=== PATIENT | male | born 1965 | race Caucasian/White ===

== ENCOUNTER 2017-03-29 07:30 | Day surgery (SDC) | payer BC ==
[2017-03-29] MEDS ORDERED: LIDOCAINE 1% 5 ML SDV ID PRN (08:03)
[2017-03-29] MEDS ORDERED: LR 1,000 ML IV ONE (08:03)
[2017-03-29] MEDS ORDERED: LIDOCAINE 1% 5 ML SDV ONE (08:06)
[2017-03-29] MEDS ORDERED: PROPOFOL 200 MG/20 ML VIAL ONE (08:12)
[2017-03-29] MEDS ORDERED: ROCURONIUM 50 MG/5 ML VIAL ONE (08:12)
[2017-03-29] MEDS ORDERED: LIDOCAINE 2% 100 MG/5 ML SYR ONE (08:12)
[2017-03-29] MEDS ORDERED: ONDANSETRON 4 MG/2 ML VIAL ONE (08:12)
[2017-03-29] MEDS ORDERED: fentaNYL 100 MCG/2 ML INJ ONE ×3 (08:12→11:47)
[2017-03-29] MEDS ORDERED: DEXAMETHASONE 4 MG/ML VIAL ONE (08:12)
[2017-03-29] MEDS ORDERED: LIDO/EPI 1% **Not for Epidural 20 ML MDV ONE (09:03)
[2017-03-29] MEDS ORDERED: MIDAZOLAM 2 MG/2 ML VIAL ONE (09:57)
[2017-03-29] MEDS ORDERED: PHENYLEPHRINE HCL 100 MCG/ML SYR ONE (10:25)
[2017-03-29] MEDS ORDERED: SUGAMMADEX SODIUM 200 MG/2 ML VIAL IVP ONE (11:08)
[2017-03-29] MEDS ORDERED: LABETALOL HCL 50 MG/10 ML SYR ONE (11:31)
[2017-03-29] MEDS ORDERED: hydrALAZINE 20 MG/ML VIAL ONE (11:42)
[2017-03-29] MEDS ORDERED: hydrALAZINE 20 MG/ML VIAL IVP PRN (11:48)
--- NOTE | 2017-04-02 03:36 | GOP ---
[f rep st] OPERATIVE REPORT DATE OF OPERATION: 03/29/2017 SURGEON: Deon Huerta MD ANESTHESIA: General. PREOPERATIVE DIAGNOSIS: Nasal obstruction. POSTOPERATIVE DIAGNOSIS: Nasal obstruction. PROCEDURE PERFORMED: Septoplasty, inferior turbinate reduction. FINDINGS: Obstructive septal deviation, bilateral inferior turbinate hypertrophy. SPECIMENS: None. ESTIMATED BLOOD LOSS: 5 mL. DESCRIPTION OF PROCEDURE: The patient was brought to the operating room by Anesthesiology and place d on the operating table. Once appropriate level of anesthesia was achieved, bilateral nasal colume lla, bilateral nasal septum, and bilateral inferior turbinates were injected with 1% lidocaine with 1:100,000 epinephrine. Afrin-soaked pledgets were then placed bilaterally. Patient was then preppe d and draped in the usual fashion. Once the surgical site was prepared, the pledgets were removed. The remainder of the case was performed under 0-degree rigid video endoscopic visualization. A lef t hemitransfixion incision was created with a needle-tip Bovie electric cautery. Submucoperichondri al and submucoperiosteal elevation was completed on the left nasal septal flap using a Ted elevat or and suction [place]. Once this was completed, a vertical incision was created at the bony cartilag inous junction with a [place] elevator. The contralateral mucosa was then elevated off the bony sept um using the Ted elevator. A D knife was then used to incise the deviated portion of the quadran gular cartilage. Care was taken to leave a 1 cm dorsal and columellar strut. The incised cartilage was then elevated off the contralateral mucosa with a caudal elevator. This was removed with a [place] streeter. A straight [place] scissor was then used to create a cut at the superior portion of the bony s eptum. The deviated portions of bony septum were then removed with the [place]. Maxillary crest deviation was then removed with the with Srinivasa. The flaps were replaced and the septum was foun d to be straight under video endoscopic visualization. The left hemitransfixion incision was closed using two 4-0 chromic interrupted sutures. A left-sided septal mucosal tear was also closed using a single 4-0 chromic suture. Following this, the inferior turbinate was reduced in a submucosal fas hion with the 2 mm turbinate microdebrider. There was a single anterior insertion site and submucos al resection was completed under video endoscopic visualization. This was repeated at the left with soft tissue infection bilaterally. First the right and then the left inferior turbinates were infr actured using [place] elevator and subsequent outfracture and lateralization with a [place] elevator. A t the end of the case. There was good visualization from the anterior vestibule through to the naso pharynx bilaterally. Minimal bleeding. Bacitracin coated Olson splints were placed bilaterally and secured in place with a 3-0 Prolene suture. The patient tolerated this procedure well and was extu bated in the operating room prior to being transferred in good condition to the post anesthesia care unit. COMPLICATIONS: None. /[id number]/[id number]
== END 2017-03-29 17:55 | disposition home or self-care (01) ==
LOC: FSGY 07:30
PROVIDERS: ATTEND Otolaryngology
PROC: 095L8ZZ Destruction of Nasal Turbinate, Via Natural or Artificial Opening Endoscopic (ICD-10-PCS; principal; 2017-03-29 09:00)
PROC: 09SM4ZZ Reposition Nasal Septum, Percutaneous Endoscopic Approach (ICD-10-PCS; principal; 2017-03-29 09:00)
DX: J34.2 Deviated nasal septum (principal); J34.3 Hypertrophy of nasal turbinates; J34.89 Other specified disorders of nose and nasal sinuses; G47.33 Obstructive sleep apnea (adult) (pediatric); J35.1 Hypertrophy of tonsils; I77.810 Thoracic aortic ectasia
CPT/HCPCS: J0360; J1100; J2001; J2250; J2370; J2405; J2704; J3010